=== PATIENT | male | born 1990 | race Caucasian/White ===

== ENCOUNTER 2018-08-23 06:04 | Day surgery (SDC) | payer OTHER ==
[2018-08-23] MEDS ORDERED: ceFAZolin 2 GM/50 ML 2 GM/50 ML BAG IV ONE (06:39)
[2018-08-23] MEDS ORDERED: LACTATED RINGERS 1,000 ML IV ONE ×2 (07:00→09:46)
--- NOTE | 2018-08-23 07:15 | ANESTHESIA ---
Pre-Anesthesia VS, & Labs - Diagnosis Left knee patellar chondral lesion - Procedure Left knee arthroscopy with debridement chondroplasty Height 6 ft 3 in Weight (kg) 99.79 kg - NPO >8 hours Home Medications and Allergies Home Medications: Ambulatory Orders No Known Home Medications 08/13/18 No Known Home Medications 08/13/18 Allergies/Adverse Reactions: Allergies Allergy/AdvReac Type Severity Reaction Status Date / Time No Known Drug Allergies Allergy Verified 08/13/18 12:25 Anes History & Medical History - Anesthetic History Anesthesia Complications: reports: No previous complications - Medical History Cardiovascular: reports: None Pulmonary: reports: None Gastrointestinal: reports: None Urinary: reports: None Neuro: reports: None Musculoskeletal: reports: None Endocrine/Autoimmune: reports: None Blood Disorders: reports: None Skin: reports: None Smoking Status: Never smoker Psychosocial: reports: No issues indicated - Surgical History Eyes Ears Nose Throat (EENT): Tonsil/Adenoidectomy Exam General: Alert, Oriented x3, Cooperative, No acute distress Dental: WNL Mouth Openin Fingerbreadth Neck Mobility: Normal Mallampati classification: I Thyromental Distance: 4-6 cm Respiratory: Lungs clear, Normal breath sounds, No respiratory distress, No accessory muscle use Cardiovascular: Regular rate, Normal S1, Normal S2, No murmurs Mental/Cognitive Status: Alert/Oriented X3, Normal for patient Plan Anesthesia Type: General Consent for Procedure(s) Verified and Reviewed: Yes Code Status: Attempt Resuscitation ASA classification: 1-Healthy patient Is this case an emergency?: No
[2018-08-23] MEDS ORDERED: BUPIVACAINE 0.25% PF 30 ML VIAL ONE (07:35)
[2018-08-23] MEDS ORDERED: BUPIVACAINE 0.25% PF 30 ML VIAL SUBQ ONE ×2 (08:47→09:12)
[2018-08-23] MEDS ORDERED: ACETAMINOPHEN 1,000 MG/100 ML 100 ML IV ONE (09:00)
[2018-08-23] MEDS ORDERED: fentaNYL 100 MCG/2 ML VIAL IVP ONE (09:00)
[2018-08-23] MEDS ORDERED: DEXAMETHASONE 4 MG/ML VIAL IVP ONE (09:00)
[2018-08-23] MEDS ORDERED: KETOROLAC 30 MG/ML VIAL IVP ONE (09:00)
[2018-08-23] MEDS ORDERED: PROPOFOL 200 MG/20 ML VIAL IVP ONE (09:00)
[2018-08-23] MEDS ORDERED: MIDAZOLAM 2 MG/2 ML VIAL IVP ONE (09:00)
[2018-08-23] MEDS ORDERED: LIDOCAINE-MPF 2% 5 ML VIAL IM ONE (09:00)
[2018-08-23] MEDS ORDERED: ONDANSETRON 4 MG/2 ML VIAL IVP ONE (09:00)
[2018-08-23] MEDS ORDERED: fentaNYL 100 MCG/2 ML VIAL ONE (09:30)
[2018-08-23] MEDS ORDERED: HYDROmorphone 1 MG/ML CARPUJECT ONE (09:30)
[2018-08-23] MEDS ORDERED: oxyCODONE 5 MG TABLET PO PRN (09:31)
[2018-08-23] MEDS ORDERED: ONDANSETRON 4 MG/2 ML VIAL IVP PRN (09:31)
--- NOTE | 2018-08-23 09:42 | OPERATIVE REPORT ---
Operative Report - General Planned Procedure: Left knee Arthroscopy, shaving chondroplasty, plica debridement Pre-Op Diagnosis: Left knee patellofemoral chondromalacia, plica impingement Procedure Performed: Left knee arthroscopy patellar shaving chondroplasty, limited intra-articular debridement Post Op Diagnosis: Left knee patellofemoral chondromalacia, plica impingement - Procedure Note Primary Surgeon: Morgan Greenwood MD Anesthesia Technique: General LMA Estimated Blood Loss (mL): 5 Complications: None - Other Other Information/Narrative: OPERATION PERFORMED: Left knee arthroscopy patellar shaving chondroplasty, limited intra-articular debridement, plica debridement Left knee: 1. Patella: Approximately 2 cm x 2 cm partial-thickness chondral defect from midline onto the medial facet with grade 2 to grade 3 changes throughout the defect 2. Trochlea: Normal-appearing 3. Medial Compartment: Grade 1 changes with some softening of the tibial and femoral cartilage 4. Lateral Compartment: Grade 1 changes with some softening of the tibial and femoral cartilage 5. ACL and PCL: Intact, intact COMPLICATIONS: none IMPLANTS: None Tourniquet: approximately 60 minutes, 250 mmHg, left thigh Procedure Details: The patient was met in the pre-operative hold area. We reviewed risks, benefits, and alternatives to surgery. Consent was verified. The patient verified the surgical site as the left knee. The patient then met with anesthesia and was brought back to the operating room. The patient was placed supine on the operating table. A general anesthetic was administered and LMA was placed. A well-padded tourniquet was placed on the left thigh. The left lower extremity was then prepped and draped in the usual sterile fashion. A surgical timeout was then performed. The correct patient, the correct procedure, and the correct surgical site were confirmed by everyone in the room. Perioperative antibiotics had been administered. After surgical timeout and administration of antibiotics the Escmarch was used to exsanguinate the left lower extremity and the tourniquet was raised. An 11 blade scalpel was used to make an anteromedial and anterolateral arthroscopic portal. The arthroscope was introduced into the knee and a diagnostic arthroscopy was performed with the above-stated findings. A superior medial portal was created using needle localization. The arthroscopic sucker shaver was inserted into the knee and a chondroplasty of the patella was performed. The cartilage was debrided to a stable rim. After debridement and chondroplasty the the size of the lesion was approximately 20 mm from proximal to distal and approximately 20 mm from medial to lateral. Limited intra-articular debridement of the fat pad and prominent medial plica was performed. The arthroscopic instruments were then removed from the knee. The portals were closed with 3-0 Monocryl. 0.25% Marcaine was injected into the periarticular soft tissues. The incisions were dressed with Xeroform gauze, 4 x 4's, and ABD and compression stocking. The tourniquet was lowered. The surgical drapes were removed. The patient was awoken from anesthesia, extubated, transferred to the hospital bed, and taken to the PACU for recovery in good condition. Postoperative plan: 1. Discharge home from the same day surgery facility once the patient has met discharge criteria. 2. Advance weightbearing as tolerated, range of motion as tolerated, and wean from crutches as tolerated. 3. Return to clinic in 5 days for wound check. 4. Allow advancement of activities as tolerated with full clearance for all activities anticipated in 6-8 weeks postoperatively.
[2018-08-23] MEDS ORDERED: oxyCODONE 5 MG TABLET ONE (10:27)
[2018-08-23 11:13] VITALS: BP 130/76
== END 2018-08-23 06:05 | disposition home or self-care (01) ==
LOC: SDS 06:04
PROVIDERS: ATTEND Orthopaedic Surgery
PROC: 0SBD4ZZ Excision of Left Knee Joint, Percutaneous Endoscopic Approach (ICD-10-PCS; principal; 2018-08-23 07:30)
DX: M22.42 Chondromalacia patellae, left knee (principal); M89.9 Disorder of bone, unspecified; M25.862 Other specified joint disorders, left knee
CPT/HCPCS: 29877; A9270; J0131; J0690; J7120